=== PATIENT | male | born 1965 | race Caucasian/White ===

== ENCOUNTER 2017-09-27 08:40 | Observation (INO) | payer OTHER ==
[2017-09-27] MEDS ORDERED: FAMOTIDINE 20 MG TAB PO ONE (08:43)
[2017-09-27] MEDS ORDERED: ASPIRIN EC 325 MG TAB PO ONE (08:43)
[2017-09-27] MEDS ORDERED: DIAZEPAM 5 MG TAB PO ONE (08:43)
[2017-09-27] MEDS ORDERED: NS 1,000 ML IV ONE (08:43)
[2017-09-27] MEDS ORDERED: diphenhydrAMINE 25 MG CAP PO ONE ×2 (08:43→09:02)
--- NOTE | 2017-09-27 09:00 | CPEKG ---
Heart Rate: 92 RR Interval: 652 P-R Interval: 164 QRSD Interval: 76 QT Interval: 344 QTC Interval: 426 P [place]: 42 QRS [place]: 32 T Wave [place]: 78 EKG Severity - ABNORMAL ECG - EKG Impression: SINUS RHYTHM EKG Impression: INFERIOR INFARCT, CANNOT RULE OUT Electronically Signed By: Brett Bateman 28-Sep-2017 20:45:32
[2017-09-27] MEDS ORDERED: FAMOTIDINE 20 MG TAB ONE (09:02)
[2017-09-27] MEDS ORDERED: DIAZEPAM 5 MG TAB ONE (09:03)
--- NOTE | 2017-09-27 09:13 | PDPROPOC ---
Sedation Plan of Care Sedation Plan of Care: vital signs stable, mental status noted, patient educated of risks, benefits, alternatives, patient can tolerate sedation ASA Classification: ASA 2 Planned drugs: fentanyl, midazolam Mallampati Score: Class 3 Mallampati Reference Image: Patient passed 3-3-2 rule?: Yes
--- NOTE | 2017-09-27 09:13 | PDHPUP ---
History & Physical Update H&P update statement: This history and physical update is based on an assessment of the patient which was completed after admission or registration (within 24 hours), but prior to the surgery/procedure. H&P update: H&P reviewed & patient examined, no change in patient's condition since H&P completed
[2017-09-27 09:30] LABS: % IMMATURE GRANULYOCYTES 0.5 % (0.0-1.1); ABSOLUTE IMMATURE GRANULOCYTES 0.04 10^3/uL (0.00-0.10); ADD DIFF? NO; ADD MORPH? NO; ADD SCAN? NO; ATYPICAL LYMPHOCYTE FLAG 0 (0-99); FRAGMENT RBC FLAG 0 (0-99); HEMATOCRIT 47.9 % (40.0-51.0); HEMOGLOBIN 16.6 g/dL (13.7-17.5); LEFT SHIFT FLG 0 (0-99); LIPEMIA HEMOLYSIS FLAG 90 (0-99); MEAN CELL HEMOGLOBIN 30.2 pg (27.9-34.1); MEAN CELL HEMOGLOBIN CONCENTR. 34.7 g/dL (32.4-36.7); MEAN CELL VOLUME 87.2 fL (81.5-99.8); MEAN PLATELET VOLUME 9.9 fL (8.7-11.7); PLATELET CLUMPS FLAG 0 (0-99); PLATELET COUNT 204 10^3/uL (150-400); RED BLOOD CELL COUNT 5.49 10^6/uL (4.40-6.38)
[2017-09-27 09:35] LABS: INR 1.11 (0.83-1.16); PROTIME(PATIENT) 14.5 SEC (12.0-15.0)
[2017-09-27 09:53] LABS: ANION GAP 14 mEq/L (8-16); CALCIUM 9.5 mg/dL (8.5-10.4); CARBON DIOXIDE 22 mEq/l (22-31); CHLORIDE 104 mEq/L (97-110); CHOLESTEROL 119 mg/dL (140-220); CHOLESTEROL/HDL RATIO 3.22 RATIO (1.00-4.97); CREATININE 0.8 mg/dL (0.7-1.3); GLOMERULAR FILTRATION RATE > 60; GLUCOSE 177 mg/dL (70-100); HIGH DENSITY LIPOPROTEIN 37 mg/dL (40-65); LDL/HDL RATIO 1.81 RATIO (1.00-3.64); LOW DENSITY LIPOPROTEIN 67 mg/dL (80-100); MAGNESIUM 1.7 mg/dL (1.6-2.3); NON-HIGH DENSITY LIPOPROTEIN 82 mg/dL (90-129); POTASSIUM 4.1 mEq/L (3.5-5.2); SODIUM 140 mEq/L (134-144); TRIGLYCERIDE 76 mg/dL (40-150); VERY LOW DENSITY LIPOPROTEINS 15 mg/dL (8-25)
[2017-09-27] MEDS ORDERED: IOPAMIDOL (ISOVUE-370) 150 ML BTL IV ONE (10:07)
[2017-09-27] MEDS ORDERED: LIDOCAINE 1% 300 MG/30 ML SDV ONE (10:07)
[2017-09-27] MEDS ORDERED: MIDAZOLAM 2 MG/2 ML VIAL ONE ×2 (10:07→11:07)
[2017-09-27] MEDS ORDERED: fentaNYL 100 MCG/2 ML INJ ONE ×2 (10:07→11:07)
[2017-09-27] MEDS ORDERED: IOPAMIDOL (ISOVUE-300) 150 ML BTL ONE (10:08)
[2017-09-27] MEDS ORDERED: BIVALIRUDIN 250 MG/5 ML VIAL IV ONE (11:37)
[2017-09-27] MEDS ORDERED: NITROGLYCERIN 1,500 MCG/15 ML VIAL MISC ONE (11:59)
[2017-09-27] MEDS ORDERED: CLOPIDOGREL BISULFATE 75 MG TAB ONE ×2 (12:25→12:44)
[2017-09-27] MEDS ORDERED: ATROPINE SULFATE 1 MG/10 ML SYR IVP PRN (12:53)
[2017-09-27] MEDS ORDERED: CLOPIDOGREL BISULFATE 75 MG TAB PO ONE (12:53)
[2017-09-27] MEDS ORDERED: ONDANSETRON 4 MG/2 ML VIAL IVP PRN (12:53)
[2017-09-27] MEDS ORDERED: TEMAZEPAM 15 MG CAP PO PRN (12:53)
[2017-09-27] MEDS ORDERED: NITROGLYCERIN 0.4 MG BTL SL PRN (12:53)
[2017-09-27] MEDS ORDERED: LORazepam 2 MG/ML INJ IVP PRN (12:53)
[2017-09-27] MEDS ORDERED: LOSARTAN/HCTZ 50/12.5 1 TAB PO SCH (14:45)
--- NOTE | 2017-09-27 16:00 | CPEKG ---
Heart Rate: 73 RR Interval: 822 P-R Interval: 172 QRSD Interval: 74 QT Interval: 372 QTC Interval: 410 P [place]: 57 QRS [place]: 56 T Wave [place]: 104 EKG Severity - ABNORMAL ECG - EKG Impression: SINUS RHYTHM EKG Impression: NONSPECIFIC T ABNORMALITIES, LATERAL LEADS Electronically Signed By: Brett Bateman 28-Sep-2017 20:45:06
--- NOTE | 2017-09-27 19:25 | CPIP ---
[f rep st] INVASIVE CARDIAC PROCEDURE DATE OF PROCEDURE: 09/27/2017 PROCEDURES PERFORMED: 1. Coronary angiography. 2. Left ventricular end-diastolic pressure. 3. Abdominal aortography. 4. Right lower extremity angiography via ipsilateral approach with catheter placed in the right comm on iliac artery. INDICATION: 1. Class 3 angina, despite medical therapy. 2. Claudication. ACCESS: Patient was prepped and draped in sterile fashion. 1% lidocaine was used to anesthetize the right inguinal region. A 6-Haitian introducer sheath was placed selectively in the right common femo ral artery via modified Seldinger technique. CORONARY ANGIOGRAPHY: A 6-Haitian JL4 was advanced to the left main coronary artery and images obtain ed. The left main coronary artery bifurcated into an LAD and circumflex coronary arteries. The left main coronary artery appeared normal. The left anterior descending coronary artery had mild diffuse disease throughout. In the midvessel, previously placed stents could be seen. The previously place d stents are widely patent with no evidence of significant in-stent restenosis. The second diagonal artery is a small vessel. The second diagonal artery had an ostial 90% stenosis present. This was u nchanged since stent placement previously. The circumflex coronary artery is a large vessel. The ci rcumflex coronary artery is dominant. The circumflex coronary artery is diffusely diseased. In the mid vessel, a previously placed stent can be seen. The previously placed stent is widely patent with no evidence of significant in-stent restenosis. The second OM artery was also stented; the second O M artery gave rise to a large superior and large inferior limbs. Stents could be seen extending into the superior and inferior limbs. The stent in the inferior limb had pnns-da-[id number] in-stent reste nosis present. The stent in the superior limb was widely patent. Just distal to the stent, in the s uperior limb, a single discrete 80% stenosis can be seen. Right coronary angiography was not perform ed as the right coronary artery is nondominant and known to be occluded previously. LEFT VENTRICULAR END-DIASTOLIC PRESSURE: A 6-Haitian pigtail catheter was advanced in the left ventri fracisco and left ventricular end-diastolic pressure obtained. Left ventricular end-diastolic pressure wa s 15 mmHg. Left ventriculography was not performed in an effort to spare contrast, to allow full ang iography and intervention. PERCUTANEOUS CORONARY INTERVENTION OF THE OBTUSE MARGINAL-2 CORONARY ARTERY: A 6-Haitian EBU 3.5 cath eter was advanced to the left main coronary artery and images obtained. Angiography confirmed the pr esence of high-grade disease in the superior limb of the OM2 coronary artery. A Luge wire was placed in the distal vessel and position verified by angiography. A 2.5 x 12 Emerge balloon was used to pr e-dilate the lesion. Followup angiography demonstrated significant residual stenosis. A 2.25 x 16 S ynergy drug-eluting stent was then placed across the lesion and deployed. Followup angiography demon strated JAROCHO-3 flow, incomplete stent expansion. The stent was post dilated with a 2.5 x 12 Emerge b alloon. Followup angiography demonstrated JAROCHO-3 flow, no residual stenosis. ABDOMINAL AORTOGRAPHY: A 6-Haitian pigtail catheter was placed in the distal abdominal aorta and posi tion verified by angiography. Images were obtained via power injection through the [employer] system. T he distal abdominal aorta bifurcated into the left and right common iliac arteries. Stents can be se en in the left and right common iliac arteries, placed via kissing technique. The ostial segment of the right common iliac artery stent was about 25% stenosis. The left common iliac stent was free of any significant disease. The left common iliac artery bifurcated into the left internal iliac artery and the left external iliac artery. The left internal iliac artery was not well visualized. The le ft external iliac artery had a previously placed stent. The previously placed stent appeared to have severe in-stent restenosis present. RIGHT LOWER EXTREMITY ANGIOGRAPHY VIA IPSILATERAL APPROACH WITH CATHETER PLACED IN THE RIGHT COMMON I LIAC ARTERY: A 5-Haitian straight flush catheter was placed in the right common iliac artery and imag es were obtained via hand injection. A stent can be seen in the right common iliac artery. The osti al portion of the right common iliac artery stent had a 20% stenosis present. The remainder of the s tent had mild in-stent restenosis with no evidence of flow limitation. The right internal iliac rupa ry had an ostial 60% stenosis present. The right external iliac artery had a segmental 50% stenosis present. COMPLICATIONS: None. CONCLUSIONS: 1. Two-vessel coronary artery disease. 2. Status post successful percutaneous coronary intervention of the obtuse marginal artery using Syn ergy drug-eluting stent. 3. Severe in-stent restenosis of the left external iliac artery stent, consider staged percutaneous intervention. /[id number]/MODL
[2017-09-28 04:14] LABS: % IMMATURE GRANULYOCYTES 0.4 % (0.0-1.1); ABSOLUTE IMMATURE GRANULOCYTES 0.03 10^3/uL (0.00-0.10); ADD DIFF? NO; ADD MORPH? NO; ADD SCAN? NO; ATYPICAL LYMPHOCYTE FLAG 0 (0-99); FRAGMENT RBC FLAG 0 (0-99); HEMATOCRIT 44.7 % (40.0-51.0); HEMOGLOBIN 15.2 g/dL (13.7-17.5); LEFT SHIFT FLG 0 (0-99); LIPEMIA HEMOLYSIS FLAG 90 (0-99); MEAN CELL HEMOGLOBIN 29.8 pg (27.9-34.1); MEAN CELL VOLUME 87.6 fL (81.5-99.8); MEAN PLATELET VOLUME 9.8 fL (8.7-11.7); PLATELET CLUMPS FLAG 10 (0-99); PLATELET COUNT 182 10^3/uL (150-400); RED CELL DISTRIBUTION WIDTH 13.1 % (11.5-15.2)
[2017-09-28 04:33] LABS: ANION GAP 11 mEq/L (8-16); CALCIUM 8.9 mg/dL (8.5-10.4); CARBON DIOXIDE 26 mEq/l (22-31); CHLORIDE 103 mEq/L (97-110); CREATININE 0.9 mg/dL (0.7-1.3); GLOMERULAR FILTRATION RATE > 60; GLUCOSE 122 mg/dL (70-100); POTASSIUM 4.2 mEq/L (3.5-5.2); SODIUM 140 mEq/L (134-144)
[2017-09-28] MEDS ORDERED: ATORVASTATIN CALCIUM 40 MG TAB PO SCH (09:00)
[2017-09-28] MEDS ORDERED: ASPIRIN EC 325 MG TAB PO SCH (09:00)
[2017-09-28] MEDS ORDERED: NON-FORMULARY NEW DRUG (Atorvastatin Calcium [Lipitor 80 Mg] 80 MG) PO SCH (09:00)
[2017-09-28] MEDS ORDERED: NON-FORMULARY NEW DRUG (Glimepiride [Amaryl] 4 MG) PO SCH (09:00)
[2017-09-28] MEDS ORDERED: CLOPIDOGREL BISULFATE 75 MG TAB PO SCH (09:00)
[2017-09-28] MEDS ORDERED: GLIMEPIRIDE 2 MG TAB PO SCH (09:00)
[2017-09-28] MEDS ORDERED: LOSARTAN/HCTZ 50/12.5 1 TAB PO SCH (09:00)
--- NOTE | 2017-09-28 09:06 | CPEKG ---
Heart Rate: 80 RR Interval: 750 P-R Interval: 164 QRSD Interval: 74 QT Interval: 368 QTC Interval: 425 P [place]: 53 QRS [place]: 50 T Wave [place]: 94 EKG Severity - ABNORMAL ECG - EKG Impression: SINUS RHYTHM EKG Impression: VENTRICULAR PREMATURE COMPLEX EKG Impression: NONSPECIFIC T ABNORMALITIES, LATERAL LEADS Electronically Signed By: Brett Bateman 28-Sep-2017 20:45:00
--- NOTE | 2017-09-28 09:31 | ASMTCMCOM ---
CM Note CM Note Notes: 09/28/2017 Case Management Note Reviewed chart. No case management d/c needs identified d/t pt age, marital status, employment status and activity levels prior to admission. There are no PT or OT evals ordered at this time. Case Management d/c poc: Home independent with follow up as directed when medically stable. Case management available if needs change. Date Signed: 09/28/2017 09:31 AM Electronically Signed By:Gabbie Rubalcava RN
[2017-09-28 11:52] VITALS: BP 99/94; PULSE 87; RESP 17; TEMP 98.7; O2SAT 96
--- NOTE | 2017-09-28 16:50 | ASDISCHSUM ---
Discharge Information Plan Status:Home with No Needs Medically Cleared to Leave:09/27/2017 Discharge Date:09/28/2017 02:00 PM CM D/C Disposition:Home, Routine, Self-Care ADT D/C Disposition:Home, Routine, Self-Care Projected Discharge Date:09/28/2017 12:00 AM Transportation at D/C:Family Discharge Delay Reason: Follow-Up Date:09/28/2017 12:00 AM Discharge Slot: Final Diagnosis: Placement Information Patient Contact Information Contact Name:VERONICA Relationship:Daughter Address:[address] City:[facility] Phone: State/Zip Code:[place] [address] Email: Financial Information Financial Class:Braulio [facility] Primary Plan Desc:[facility] [place] [facility] Primary Plan Number:[id number] Secondary Plan Desc: Secondary Plan Number: Assessment Information [facility] CM Progress Note CM Note CM Note Notes: 09/28/2017 Case Management Note Reviewed chart. No case management d/c needs identified d/t pt age, marital status, employment status and activity levels prior to admission. There are no PT or OT evals ordered at this time. Case Management d/c poc: Home independent with follow up as directed when medically stable. Case management available if needs change. Date Signed: 09/28/2017 09:31 AM Electronically Signed By:Gabbie Rubalcava RN Intervention Information
--- NOTE | 2017-09-29 06:28 | GDS ---
[f rep st] DISCHARGE SUMMARY ADMISSION DIAGNOSES: 1. Coronary artery disease. 2. Peripheral vascular disease with claudication. 3. Hyperlipidemia. 4. Hypertension. 5. Tobacco abuse. DISCHARGE DIAGNOSES: 1. Coronary artery disease with previous stents. 2. Percutaneous coronary intervention of the obtuse marginal artery using Synergy drug-eluting stent . 3. Severe in-stent restenosis of the left external iliac artery stent. COURSE OF HOSPITALIZATION: This gentleman was seen in clinic by Dr. Cyrus Ruggiero, due to recent chest pain and shortness of breath post ear surgery in the fall of 2016. He had no cardiac complications d uring or after the ear surgery. Since the surgery he developed chest pain and claudication. He desc ribes the chest pain as pressure in the center of his chest that did not radiate. He denied having n ausea, vomiting, or diaphoresis. He additionally was experiencing symptoms of claudication, specific ally in bilateral buttocks with pain on exertion. This pain was brought on after walking short dista nces. It was decided to further evaluate with cardiac angiogram and peripheral vascular studies. He was taken to the laborer bit[facility] p[facility] where a new lesion was found on the obtuse marginal requiring a drug-eluti ng stent. Other vessels showed no stent restenosis. The right internal iliac artery had an ostial 6 0% stenosis present. The right external iliac artery had a segmental 50% stenosis present. Successf ul percutaneous intervention was done of the obtuse marginal using a Synergy drug-eluting stent. Sev ere in-stent restenoses of the left external iliac artery stent was noted with recommendation for con sideration of a staged percutaneous intervention. He had no complications and was taken to PCU for o vernight observation where he has done well. He has had no chest discomfort and no complaints of cla udication. Groin sites are intact with no bleeding, induration or pain. At this time he currently i s stable for discharge. MEDICATIONS: He will go home on metformin 500 mg twice daily to be held until 09/29/2017 evening dos e. Losartan hydrochlorothiazide 100/25 1 tablet daily. Vitamin D2 50,000 units on Wednesdays. Lipi tor 80 daily. Tylenol 325 mg to 650 mg every 4 hours as needed for pain, not to exceed 3 g daily. E nteric-coated aspirin 325 mg daily. Amaryl 4 mg daily. Plavix 75 mg daily. PHYSICAL EXAMINATION: VITAL SIGNS: On day of discharge, blood pressure 129/79, heart rate 88 and re gular, oxygen saturation 95%. EKG shows a normal sinus rhythm with no ischemic changes. HEART: Rat e regular, no murmurs, rubs, gallops. LUNGS: Clear to auscultation. No wheezes, rales, or rhonchi. GROIN: Right groin site is intact with no bleeding, induration or pain. No ecchymoses noted. EXT REMITIES: Pulses are present in femoral and bilateral lower extremities. No lower extremity edema n oted. DISCHARGE PLAN: He will follow up with Dr. Ruggiero for continued PVD procedure to be set up in the ne xt 1-2 weeks; this will be of the left leg. Should he have any concerns prior to this procedure, he will call the office. The peripheral vascular procedure schedule time will be called to him. Groin site precautions were reviewed with him verbally and written. He understands no heavy pushing, pulling, or lifting greater than 10 pounds for 1 week. No sitting in a tub of water. Avoid bearing down over the next week. At this time, he currently is stable for discharge. /[id number]/MODL
[2017-10-03] MEDS ORDERED: ERGOCALCIFEROL 50,000 I.UNIT CAP PO SCH (09:00)
== END 2017-09-28 14:00 | disposition home or self-care (01) ==
LOC: FCATH 08:40 → F2W 12:53
PROVIDERS: ADMIT Internal Medicine Cardiovascular Disease; ATTEND Internal Medicine Cardiovascular Disease
PROC: 4A023N7 Measurement of Cardiac Sampling and Pressure, Left Heart, Percutaneous Approach (ICD-10-PCS; principal; 2017-09-27)
PROC: B2111ZZ Fluoroscopy of Multiple Coronary Arteries using Low Osmolar Contrast (ICD-10-PCS; principal; 2017-09-27)
PROC: 027034Z Dilation of Coronary Artery, One Artery with Drug-eluting Intraluminal Device, Percutaneous Approach (ICD-10-PCS; principal; 2017-09-27)
PROC: B2151ZZ Fluoroscopy of Left Heart using Low Osmolar Contrast (ICD-10-PCS; principal; 2017-09-27)
DX: I25.119 Atherosclerotic heart disease of native coronary artery with unspecified angina pectoris (principal); T82.857A Stenosis of other cardiac prosthetic devices, implants and grafts, initial encounter; I73.9 Peripheral vascular disease, unspecified; E78.5 Hyperlipidemia, unspecified; I10 Essential (primary) hypertension; F17.210 Nicotine dependence, cigarettes, uncomplicated; E11.9 Type 2 diabetes mellitus without complications
CPT/HCPCS: 75710; 92928; 93005; 93458; C1725; C1769; C1887; G0378; C1874; C9600; J0583; J1644; J2250; J3010; Q9967

== ENCOUNTER 2017-10-05 06:31 | Observation (INO) | payer OTHER ==
[2017-10-05] MEDS ORDERED: FAMOTIDINE 20 MG TAB PO ONE (06:38)
[2017-10-05] MEDS ORDERED: NS 1,000 ML IV ONE (06:38)
[2017-10-05] MEDS ORDERED: diphenhydrAMINE 25 MG CAP PO ONE ×2 (06:38→07:14)
[2017-10-05] MEDS ORDERED: DIAZEPAM 5 MG TAB PO ONE (06:38)
[2017-10-05] MEDS ORDERED: ASPIRIN EC 325 MG TAB PO ONE ×2 (06:38→07:14)
--- NOTE | 2017-10-05 06:58 | CPEKG ---
Heart Rate: 83 RR Interval: 723 P-R Interval: 180 QRSD Interval: 78 QT Interval: 368 QTC Interval: 433 P [place]: 60 QRS [place]: 36 T Wave [place]: 74 EKG Severity - BORDERLINE ECG - EKG Impression: SINUS RHYTHM EKG Impression: NONSPECIFIC T WAVE ABNORMALITIES LATERAL LEADS Electronically Signed By: Payton Jarvis 05-Oct-2017 08:29:44
[2017-10-05] MEDS ORDERED: DIAZEPAM 5 MG TAB ONE (07:14)
[2017-10-05] MEDS ORDERED: FAMOTIDINE 20 MG TAB ONE (07:14)
[2017-10-05 07:19] LABS: % IMMATURE GRANULYOCYTES 0.5 % (0.0-1.1); ABSOLUTE IMMATURE GRANULOCYTES 0.04 10^3/uL (0.00-0.10); ADD DIFF? NO; ADD MORPH? NO; ADD SCAN? NO; ATYPICAL LYMPHOCYTE FLAG 10 (0-99); FRAGMENT RBC FLAG 0 (0-99); HEMATOCRIT 45.2 % (40.0-51.0); HEMOGLOBIN 16.2 g/dL (13.7-17.5); LEFT SHIFT FLG 0 (0-99); LIPEMIA HEMOLYSIS FLAG 90 (0-99); MEAN CELL HEMOGLOBIN 31.2 pg (27.9-34.1); MEAN CELL HEMOGLOBIN CONCENTR. 35.8 g/dL (32.4-36.7); MEAN CELL VOLUME 86.9 fL (81.5-99.8); MEAN PLATELET VOLUME 10.1 fL (8.7-11.7); PLATELET CLUMPS FLAG 0 (0-99); PLATELET COUNT 217 10^3/uL (150-400); RED CELL DISTRIBUTION WIDTH 12.9 % (11.5-15.2)
[2017-10-05 07:28] LABS: INR 1.17 (0.83-1.16); PROTIME(PATIENT) 15.1 SEC (12.0-15.0)
[2017-10-05 07:32] LABS: ANION GAP 14 mEq/L (8-16); CALCIUM 9.4 mg/dL (8.5-10.4); CARBON DIOXIDE 21 mEq/l (22-31); CHLORIDE 103 mEq/L (97-110); CHOLESTEROL 110 mg/dL (140-220); CHOLESTEROL/HDL RATIO 2.97 RATIO (1.00-4.97); CREATININE 0.8 mg/dL (0.7-1.3); GLOMERULAR FILTRATION RATE > 60; GLUCOSE 185 mg/dL (70-100); HIGH DENSITY LIPOPROTEIN 37 mg/dL (40-65); LDL/HDL RATIO 1.57 RATIO (1.00-3.64); LOW DENSITY LIPOPROTEIN 58 mg/dL (80-100); MAGNESIUM 1.7 mg/dL (1.6-2.3); NON-HIGH DENSITY LIPOPROTEIN 73 mg/dL (90-129); SODIUM 138 mEq/L (134-144); TRIGLYCERIDE 77 mg/dL (40-150); VERY LOW DENSITY LIPOPROTEINS 15 mg/dL (8-25)
[2017-10-05] MEDS ORDERED: LIDOCAINE 1% 300 MG/30 ML SDV ONE (08:07)
[2017-10-05] MEDS ORDERED: fentaNYL 100 MCG/2 ML INJ ONE (08:08)
[2017-10-05] MEDS ORDERED: MIDAZOLAM 2 MG/2 ML VIAL ONE (08:08)
[2017-10-05] MEDS ORDERED: IOPAMIDOL (ISOVUE-300) 150 ML BTL ONE ×2 (08:09→09:17)
[2017-10-05] MEDS ORDERED: HEPARIN 10,000 UNIT/10 ML MDV ONE (08:40)
--- NOTE | 2017-10-05 08:46 | PDPROPOC ---
Sedation Plan of Care Sedation Plan of Care: vital signs stable, mental status noted, patient educated of risks, benefits, alternatives, patient can tolerate sedation ASA Classification: ASA 2 Planned drugs: fentanyl, midazolam Mallampati Score: Class 2 Mallampati Reference Image: Patient passed 3-3-2 rule?: Yes
[2017-10-05] MEDS ORDERED: ATROPINE SULFATE 1 MG/10 ML SYR IVP PRN (09:55)
[2017-10-05] MEDS ORDERED: ONDANSETRON 4 MG/2 ML VIAL IVP PRN (09:55)
[2017-10-05] MEDS ORDERED: LIDOCAINE 2% JELLY 20 ML (UROJECT) ONE (11:27)
--- NOTE | 2017-10-05 16:30 | ASMTCMCOM ---
CM Note CM Note Notes: Chart reviewed. Patient here for elective cardiac cath. Do not anticipate patient will have needs. Plan dc to home independent. CM avaialbe should needs arise. Date Signed: 10/05/2017 04:30 PM Electronically Signed By:Anabell Larose RN
[2017-10-05] MEDS ORDERED: ACETAMINOPHEN 325 MG TAB PO PRN (17:09)
[2017-10-05] MEDS ORDERED: HYDROCODONE/APAP 5/325 TAB PO PRN (17:10)
[2017-10-05] MEDS: OXYCODONE/APAP 5/325 TAB PO PRN ×2 (18:44→22:27)
--- NOTE | 2017-10-05 19:02 | CPIP ---
[f rep st] INVASIVE CARDIAC PROCEDURE DATE OF PROCEDURE: 10/05/2017 NAME OF PROCEDURE: 1. Left lower extremity angiography with catheter placed in the left common iliac artery. 2. Left external iliac artery drug-coated balloon angioplasty. INDICATION: Claudication. ACCESS: Patient was prepped and draped in usual sterile fashion. 1% lidocaine was used to anestheti ze the left inguinal region. A 6-Nepali introducer sheath was placed selectively into the left commo n femoral artery via modified Seldinger technique. Left lower extremity angiography with catheter pl aced in the left common iliac artery. A straight flush catheter was placed in the left common iliac artery and position verified by angiography. Images were obtained via hand injection through the cat heter. The left common iliac artery bifurcated into the left external iliac artery and left internal iliac artery. The left common iliac artery was previously stented. There was mild in-stent resteno sis of the previously placed stent with no evidence of flow limitation. The left internal iliac rupa ry had approximately 99% ostial stenosis. The left external iliac artery was previously stented. Th e previously placed stent was patent with approximately 75% ISR present. Just distal to the previous ly placed stent, a healed [id number]-nplg-hnlpaoxi dissection can be seen. This was present prior to 2014. A pullback gradient across the dissection flap was 2 mmHg, indicating no flow limitation. Drug coat ed balloon angioplasty of the left external iliac artery. An 0.035 wire was placed in the distal abd ominal aorta and position verified by angiography. A 6.0 x 40 drug coated balloon was placed across the lesion and deployed for 2 minutes. Followup angiography demonstrated 15% residual stenosis with no flow limitation. COMPLICATIONS: None. CONCLUSIONS: 1. 75% left external iliac artery stenosis representing in-stent restenosis. 2. Status post drug-coated balloon angioplasty of the left external iliac artery with good results. /[id number]/MODL
[2017-10-05] MEDS: CARVEDILOL 6.25 MG TAB PO SCH (22:14)
[2017-10-06 08:31] VITALS: BP 117/70; PULSE 76; RESP 18; TEMP 97.8; O2SAT 96
[2017-10-06] MEDS: CARVEDILOL 6.25 MG TAB PO SCH (08:35)
[2017-10-06] MEDS ORDERED: CLOPIDOGREL BISULFATE 75 MG TAB PO SCH (09:00)
[2017-10-06] MEDS ORDERED: glyBURIDE 5 MG TAB PO SCH (09:00)
[2017-10-06] MEDS ORDERED: ASPIRIN EC 325 MG TAB PO SCH (09:00)
[2017-10-06] MEDS ORDERED: LOSARTAN/HCTZ 50/12.5 1 TAB PO SCH (09:00)
[2017-10-06] MEDS ORDERED: MULTIVITAMINS 1 EACH TAB PO SCH (09:00)
[2017-10-06] MEDS ORDERED: ATORVASTATIN CALCIUM 20 MG TAB PO SCH (09:00)
[2017-10-06] MEDS ORDERED: GLIMEPIRIDE 2 MG TAB PO SCH (09:00)
--- NOTE | 2017-10-06 13:32 | GDS ---
[f rep st] DISCHARGE SUMMARY ADMIT DIAGNOSES: 1. Known peripheral vascular disease. 2. Coronary artery disease, status post recent percutaneous coronary intervention 09/27/2017. DISCHARGE DIAGNOSIS: Status post drug-eluting stent to the left common iliac with no complications. COURSE OF HOSPITALIZATION: This gentleman was hospitalized 1 week ago for coronary artery disease, h aving a PCI of the obtuse marginal. He additionally had blockage in the right common iliac intervene d with drug-eluting balloon. Due to the dye load it was determined that he would need to come back f or evaluation of the left common iliac. Dr. Cyrus Ruggiero took him to the cardiac analyst microbiology lab on 10/05/2017, finding 75% blockage of the left external iliac artery representing in-stent restenosis, status post drug-coated balloon angioplasty of the left external iliac artery with good results. He has been up ambulating with no problems. Right groin site is intact with no bleeding, induration, he matoma or pain. ALLERGIES: He has no known allergies. MEDICATIONS: He will go home on metformin 500 mg twice daily to be restarted on 10/07/2017, in the evening. Losartan hydrochlorothiazide 100/25 daily. Vitamin D2, 50,000 units on Wednesdays. Aspirin enteric-coated 325 mg daily. Cialis 20 mg as needed. Multivitamin 1 tablet daily. Coreg h as been reduced to 3.125 twice daily. Lipitor 20 mg daily. Plavix 75 mg daily. Amaryl 4 mg daily. Tylenol 325 mg as needed for pain, not to exceed 3000 mg daily. PHYSICAL EXAMINATION: VITAL SIGNS: On day of discharge blood pressure 117/70, heart rate 76. EKG s hows normal sinus rhythm. HEART: Rate regular. No murmurs, rubs, or gallops. LUNGS: Sounds are c lear to auscultation. No wheezes, rales, or rhonchi. : Right groin site is intact with no bleedi ng, induration or pain. Right peripheral pulses are 2+. DISCHARGE PLAN: He will follow up with Dr. Ruggiero in 10 days. Left groin precautions including no lifting, pushing, pulling greater than 10 pounds for 1 week. Oka y to shower. No tub bath or hot tub for 1 week. Explained avoid bearing down. Keep bowels soft to protect groin site. Decrease Coreg to 3.125 mg twice daily. Follow up with Dr. Ruggiero on 10/12/2017. Hold Glucophage until Sunday evening, 10/07/2017. Call the office if you have any questions or concerns. At this time, he is currently stable. /[id number]/MODL
--- NOTE | 2017-10-06 14:47 | ASDISCHSUM ---
Discharge Information Plan Status:Home with No Needs Medically Cleared to Leave: Discharge Date:10/06/2017 10:48 AM D/C Disposition:Home Health Service [facility] D/C Disposition:Home, Routine, Self-Care Projected Discharge Date:10/06/2017 10:48 AM Transportation at D/C:Family Discharge Delay Reason: Follow-Up Date:10/06/2017 10:48 AM Discharge Slot: Final Diagnosis: Placement Information Patient Contact Information Contact Name:VERONICA Relationship:Daughter Address:[address] City:[facility] Phone: [facility]/Zip Code:[place] [address] Email: Financial Information Financial Class:Braulio [facility] Primary Plan Desc:BRAULIO GANDARA [facility] Primary Plan Number:[id number] Secondary Plan Desc: Secondary Plan Number: Assessment Information [facility] CM Progress Note CM Note CM Note Notes: Chart reviewed. Patient here for elective cardiac cath. Do not anticipate patient will have needs. Plan dc to home independent. CM katya should needs arise. Date Signed: 10/05/2017 04:30 PM Electronically Signed By:Anabell Larose RN Intervention Information
[2017-10-06] MEDS ORDERED: CARVEDILOL 3.125 MG TAB PO SCH (18:00)
[2017-10-10] MEDS ORDERED: ERGOCALCIFEROL 50,000 I.UNIT CAP PO SCH (09:57)
== END 2017-10-06 10:48 | disposition home or self-care (01) ==
LOC: FCATH 06:31 → F2W 09:56
PROVIDERS: ADMIT Internal Medicine Cardiovascular Disease; ATTEND Internal Medicine Cardiovascular Disease
PROC: 047 Lower Arteries, Dilation (ICD-10-PCS; principal; 2017-10-05)
DX: I77.1 Stricture of artery (principal); I73.9 Peripheral vascular disease, unspecified; I25.10 Atherosclerotic heart disease of native coronary artery without angina pectoris; I10 Essential (primary) hypertension; Z72.0 Tobacco use; E78.5 Hyperlipidemia, unspecified; E11.9 Type 2 diabetes mellitus without complications
CPT/HCPCS: 37220; 93005; C1769; G0378; C2623; J1644; J2250; J3010; Q9967

== ENCOUNTER 2018-09-27 09:00 | Day surgery (SDC) | payer OTHER ==
[2018-09-27] MEDS ORDERED: NS 1,000 ML IV ONE (09:06)
[2018-09-27] MEDS ORDERED: DIAZEPAM 5 MG TAB PO ONE (09:06)
[2018-09-27] MEDS ORDERED: diphenhydrAMINE 25 MG CAP PO ONE (09:06)
[2018-09-27] MEDS ORDERED: ASPIRIN EC 325 MG TAB PO ONE (09:06)
[2018-09-27] MEDS ORDERED: FAMOTIDINE 20 MG TAB PO ONE (09:06)
[2018-09-27] MEDS ORDERED: MIDAZOLAM 2 MG/2 ML VIAL ONE ×2 (10:09→12:07)
[2018-09-27] MEDS ORDERED: LIDOCAINE 1% 300 MG/30 ML SDV ONE (10:09)
[2018-09-27] MEDS ORDERED: fentaNYL 100 MCG/2 ML INJ ONE (10:09)
[2018-09-27] MEDS ORDERED: IOPAMIDOL (ISOVUE-370) 150 ML BTL IV ONE (10:10)
[2018-09-27] MEDS ORDERED: IOPAMIDOL (ISOVUE-300) 100 ML BTL ONE (10:10)
--- NOTE | 2018-09-27 10:28 | CPEKG ---
Test Reason : OPEN Blood Pressure : / mmHG Vent. Rate : 073 BPM Atrial Rate : 073 BPM P-R Int : 161 ms QRS Dur : 077 ms QT Int : 380 ms P-R-T Axes : 059 044 087 degrees QTc Int : 419 ms Sinus rhythm Confirmed by Trey England ([id number]) on 09/27/2018 10:28:20 AM Referred By: Confirmed By:Trey England
[2018-09-27 10:49] LABS: PLATELET COUNT 260 10^3/uL (150-400)
[2018-09-27 10:59] LABS: INR 1.01 (0.83-1.16); PROTIME(PATIENT) 13.5 SEC (12.0-15.0)
[2018-09-27] MEDS ORDERED: BIVALIRUDIN 250 MG/5 ML VIAL IV ONE (11:44)
[2018-09-27] MEDS ORDERED: ADENOSINE 90 MG/30 ML VIAL IV ONE (11:44)
--- NOTE | 2018-09-27 15:26 | PDGENHP ---
History and Physical - Chief Complaint surgical eval of CAD - History of Present Illness This is a pleasant 53M with known CAD s/p multiple PCI, PVD s/p b/l CEA & iliac stents, DM, and dyslipidemia who presented today for elective LHC by Dr. Ruggiero. He reports symptoms of recurrent chest pain and pressure. Furthermore, he has daily claudication in his legs and buttocks. No chest or vein surgery. Occ LE edema. Reports occ SOB and CHILDS. Works in construction with heavy machinery. Mother and father with cardiac problems including CHF and heart disease. Tobacco 1 ppd x 30 years. ECHO from 2016 demonstrates EF 50 without valvular pathology. History Information - Allergies/Home Medication List Allergies/Adverse Reactions: No Known Allergies Allergy (Verified 09/05/16 17:01) Home Medications: Ergocalciferol [Vitamin D2 (*)] 50,000 unit PO WE 02/26/15 [Last Taken 09/25/18 08:00] Losartan/Hydrochlorothiazide [Losartan-Hctz 100-25 mg Tab] 1 tab PO DAILY [Last Taken 09/25/18 08:00] metFORMIN HCL [Glucophage 500 mg (*)] 500 mg PO BID 02/26/15 [Last Taken 08:00] Atorvastatin Calcium [Lipitor 20 mg (*)] 20 mg PO DAILY 10/02/17 [Last Taken 05/08 07:00] Multivitamins [Multivitamin (*)] 1 each PO DAILY 10/02/17 [Last Taken 09/26/18 08:00] Aspirin [Aspirin 81mg (*)] 81 mg PO DAILY 09/19/18 [Last Taken 09/27/18 07:00] Carvedilol [Coreg (*)] 6.25 mg PO BID 09/19/18 [Last Taken 09/27/18 07:00] I have personally reviewed and updated: family history, medical history, social history, surgical history - Past Medical History coronary artery disease, hypertension Additional medical history: DM, denies afib hx - Surgical History Reports: vascular surgery - Family History Positive for: CAD, stroke (1 ppd x 30 years) - Social History Smoking Status: Current every day smoker Review of Systems Review of Systems: ROS: 10pt was reviewed & negative except for what was stated in HPI & below Physical Exam Physical Exam: Constitutional Appearance : well-nourished, well developed, alert, in no acute distress Eyes Conjunctivae : conjunctivae normal Sclerae : sclerae white Ears External Ears : appearance within normal limits, no lesions present Neck Inspection/Palpation : normal appearance, no masses or tenderness, trachea midline, b/l CEA Respiratory Respiratory Effort : breathing unlabored Auscultation of Lungs : Normal breath sounds Cardiovascular Auscultation of Heart : regular rate and rhythm, no murmurs, gallops or rubs Palpation of Heart : normal apical impulse, no cardiac thrill present Peripheral Vascular System Extremities : no cyanosis, clubbing or edema Right femoral artery cath site c/d/i Skin and Subcutaneous Tissue General Inspection : no rashes present, no lesions present, skin turgor normal General Palpation : No abnormalities, masses or tenderness on palpation. Extremities Right Lower Extremity : no rashes present, no lesions present, no areas of discoloration Left Lower Extremity : no rashes present, no lesions present, no areas of discoloration Neurologic Mental Status Examination : Orientation : grossly oriented to person, place and time Speech/Language : communication ability within normal limits, voice quality normal, articulation of speech normal, no evidence of aphasia Psychiatric Mood and Affect : mood normal, affect appropriate Lab Data & Imaging Review 09/27/18 10:35 09/27/18 09:20 WBC 4.92 10^3/uL (3.80-9.50) 09/27/18 10:35 RBC 5.13 10^6/uL (4.40-6.38) 09/27/18 10:35 Hgb 14.9 g/dL (13.7-17.5) 09/27/18 10:35 Hct 44.8 % (40.0-51.0) 09/27/18 10:35 MCV 87.3 fL (81.5-99.8) 09/27/18 10:35 MCH 29.0 pg (27.9-34.1) 09/27/18 10:35 MCHC 33.3 g/dL (32.4-36.7) 09/27/18 10:35 RDW 13.4 % (11.5-15.2) 09/27/18 10:35 Plt Count 260 10^3/uL (150-400) 09/27/18 10:35 MPV 9.5 fL (8.7-11.7) 09/27/18 10:35 Neut % (Auto) 61.5 % (39.3-74.2) 09/27/18 10:35 Lymph % (Auto) 21.5 % (15.0-45.0) 09/27/18 10:35 Schley % (Auto) 7.3 % (4.5-13.0) 09/27/18 10:35 Eos % (Auto) 8.5 % (0.6-7.6) H 09/27/18 10:35 Baso % (Auto) 1.0 % (0.3-1.7) 09/27/18 10:35 Nucleat RBC Rel Count 0.0 % (0.0-0.2) 09/27/18 10:35 Absolute Neuts (auto) 3.02 10^3/uL (1.70-6.50) 09/27/18 10:35 Absolute Lymphs (auto) 1.06 10^3/uL (1.00-3.00) 09/27/18 10:35 Absolute Monos (auto) 0.36 10^3/uL (0.30-0.80) 09/27/18 10:35 Absolute Eos (auto) 0.42 10^3/uL (0.03-0.40) H 09/27/18 10:35 Absolute Basos (auto) 0.05 10^3/uL (0.02-0.10) 09/27/18 10:35 Absolute Nucleated RBC 0.00 10^3/uL (0-0.01) 09/27/18 10:35 Immature Gran % 0.2 % (0.0-1.1) 09/27/18 10:35 Immature Gran # 0.01 10^3/uL (0.00-0.10) 09/27/18 10:35 PT 13.5 SEC (12.0-15.0) 09/27/18 10:35 INR 1.01 (0.83-1.16) 09/27/18 10:35 APTT 26.9 SEC (23.0-38.0) 09/27/18 10:35 Sodium 135 mEq/L (135-145) 09/27/18 09:20 Potassium 4.5 mEq/L (3.5-5.2) 09/27/18 09:20 Chloride 103 mEq/L (97-110) 09/27/18 09:20 Carbon Dioxide 23 mEq/l (22-31) 09/27/18 09:20 Anion Gap 9 mEq/L (6-14) 09/27/18 09:20 BUN 12 mg/dL (7-23) 09/27/18 09:20 Creatinine 0.7 mg/dL (0.7-1.3) 09/27/18 09:20 Estimated GFR > 60 09/27/18 09:20 Glucose 254 mg/dL (70-100) H 09/27/18 09:20 Calcium 8.6 mg/dL (8.5-10.4) 09/27/18 09:20 Magnesium 2.0 mg/dL (1.6-2.3) 09/27/18 09:20 Triglycerides 113 mg/dL (40-150) 09/27/18 09:20 Cholesterol 182 mg/dL (140-220) 09/27/18 09:20 Cholesterol Risk Factr 1.0 (0.2-1.0) 09/27/18 09:20 LDL Cholesterol, Calc 120 mg/dL (80-100) H 09/27/18 09:20 LDL Risk Factor 1.0 (0.2-1.0) 09/27/18 09:20 VLDL Cholesterol 23 mg/dL (8-25) 09/27/18 09:20 Non-HDL Cholesterol 143 mg/dL (90-129) H 09/27/18 09:20 HDL Cholesterol 39 mg/dL (40-65) L 09/27/18 09:20 LDL/HDL Ratio 3.09 RATIO (1.00-3.64) 09/27/18 09:20 Cholesterol/HDL Ratio 4.67 RATIO (1.00-4.97) 09/27/18 09:20 Imaging Review: C/LE angiogram - final reporting pending EKG SR 09/27/18 ECHO 08/08 EF 50, trace MR, trace TR, LV base akinetic Assessment & Plan Assessment: Severe, multivessel CAD s/p PCI LAD, Cx, RCA Recurrent angina Severe peripheral vascular disease with claudication to buttocks s/p multiple peripheral vascular procedures Carotid artery disease s/p bilateral CEA Dyslipidemia HTN Tobacco use disorder DM Plan: Plan to meet Dr. Hernandez as an outpatient
--- NOTE | 2018-09-28 01:25 | CPIP ---
DATE OF PROCEDURE: 09/27/2018 PROCEDURES: 1. Coronary angiography. 2. Left ventricular end-diastolic pressure. 3. Fractional flow reserve of left anterior descending coronary artery. 4. Abdominal aortography. INDICATION: 1. Known coronary artery disease. 2. Class III angina. 3. Known peripheral vascular disease. 4. Class III claudication. ACCESS: Patient is prepped and draped in sterile fashion. 1% lidocaine was used to anesthetize the left inguinal region. A 6-[place] introducer sheath was placed selectively into the left common femor al artery via modified Seldinger technique. CORONARY ANGIOGRAPHY: A 6-[place] JL4 was advanced to the left main coronary artery and image was obt ained. The left main coronary artery bifurcated into LAD and circumflex coronary arteries. The left main coronary artery appeared normal. The left anterior descending coronary artery was previously s tented in the proximal and mid segments. In the mid segment, there was moderate ISR between 50% and 70% in severity. The 1st diagonal artery was a dawol-ki-chrkhqyd sized vessel. The 1st diagonal art charo had an ostial 95% stenosis present. The circumflex coronary artery was a large vessel and was do minant. The circumflex coronary artery had a proximal long segmental 50% stenosis present. In the m id vessel, previously placed stents can be seen. There was mild ISR of the previously-placed stents. The 1st OM artery is a ucyrkgzd-kd-hjqax sized vessel. The 1st OM artery is stented in the proxima l and mid segment. In the mid segment, there is a discrete 99% ISR noted. The 2nd OM artery is a mo bnbfmu-hi-ljhlk sized vessel. The 2nd OM artery is also stented in the proximal segment. There is m oderate ISR of 50% to 60% in severity. 6-[place] no torque right catheter was advanced to the right c oronary artery and images obtained. The right coronary artery was previously stented in the proximal and mid vessel. There was 100% ISR of the previously-placed stents. LEFT VENTRICULAR END-DIASTOLIC PRESSURE: A 6-[place] pigtail catheter was placed in the left ventricl e and pressure obtained. The left ventricular end-diastolic pressure was 23 mmHg. There was no sign ificant gradient on pullback. FFR OF THE LEFT ANTERIOR DESCENDING CORONARY ARTERY: A 6-[place] JL4 was advanced to the left main co ronary artery and image obtained. Angiography confirmed the presence of an intermediate grade stenos is involving the left anterior descending coronary artery. An FFR wire was placed in the distal vess el and position verified by angiography. IV adenosine infusion was infused and FFR obtained. The FF R was 0.69. Upon pullback, there was evidence of drift of 0.1. FFR was reobtained. The 2nd FFR was 0.78. Upon pullback, there was no evidence of drift indicating flow limitation. ABDOMINAL AORTOGRAPHY: A 6-[place] pigtail catheter was placed in the abdominal aorta and position ve rified by angiography. Images were obtained via power injection of the [employer] system. The distal ab dominal aorta bifurcated into the left and right common iliac arteries. Previously-placed stents can be seen in the left and right common iliac arteries via kissing stent technique. There is a 50% agatha nosis in the right common iliac artery at the ostium. There is no significant gradient on pullback. There is an eccentric high-grade stenosis of the left common iliac. The severity is difficult to ev aluate given its eccentricity. In the left external iliac artery, a previously-placed stent can be s een. There is 50% in-stent restenosis of the previously-placed stent. COMPLICATIONS: None. CONCLUSION: 1. Three-vessel coronary artery disease. 2. High-grade left common iliac artery stenosis. 3. 50% left external iliac artery stenosis. PLAN: Surgical evaluation. /[id number]/MODL
== END 2018-09-27 18:32 | disposition home or self-care (01) ==
LOC: FCATH 09:00
PROVIDERS: ATTEND Internal Medicine Cardiovascular Disease
DX: R07.9 Chest pain, unspecified (principal); I25.10 Atherosclerotic heart disease of native coronary artery without angina pectoris; I77.1 Stricture of artery; T82.856A Stenosis of peripheral vascular stent, initial encounter; I73.9 Peripheral vascular disease, unspecified; E78.5 Hyperlipidemia, unspecified; I10 Essential (primary) hypertension; F17.200 Nicotine dependence, unspecified, uncomplicated; E11.9 Type 2 diabetes mellitus without complications; N52.9 Male erectile dysfunction, unspecified; Z79.82 Long term (current) use of aspirin; Z82.49 Family history of ischemic heart disease and other diseases of the circulatory system; Z95.828 Presence of other vascular implants and grafts; Z95.5 Presence of coronary angioplasty implant and graft
CPT/HCPCS: 75630; 93005; 93458; 93571; C1769; C1887; J0153; J0583; J1644; J2250; J3010; Q9967

== ENCOUNTER → 2018-10-31 | Outpatient (CLI) | payer OTHER | LOC: FIMAGING 11:02 ==

== ENCOUNTER 2018-11-01 05:31 | Inpatient (IN) | payer OTHER ==
--- NOTE | 2018-10-31 21:37 | PDANEPAE ---
ANE History of Present Illness cad, angina ANE Past Medical History - Cardiovascular History Hx Hypertension: Yes Hx Arrhythmias: No Hx Chest Pain: Yes Hx Coronary Artery / Peripheral Vascular Disease: Yes Hx CHF / Valvular Disease: No Hx Palpitations: No Cardiovascular History Comment: CARDIAC STENTS - Pulmonary History Hx COPD: No Hx Asthma/Reactive Airway Disease: No Hx Recent Upper Respiratory Infection: No Hx Oxygen in Use at Home: No Hx Sleep Apnea: No Sleep Apnea Screening Result - Last Documented: Positive - Neurologic History Hx Cerebrovascular Accident: No Hx Seizures: No - Endocrine History Hx Diabetes: Yes Hypothyroid: No Hyperthyroid: No Obesity: mild Endocrine History Comment: METFORMIN - Renal History Hx Renal Disorders: No - Liver History Hx Hepatic Disorders: No - Neurological & Psychiatric Hx Hx Neurological and Psychiatric Disorders: No - Cancer History Hx Cancer: No - GI History GERD: no Hx Gastrointestinal Disorders: No - Other Health History Other Health History: NONE - Chronic Pain History Chronic Pain: No - Surgical History Prior Surgeries: DYLLAN CEA - 09/06. CARDIAC CATH 09/27/18. LEFT CAROTID . CARDIAC STENTS 02/2015 ANE Review of Systems Review of systems is: negative Review of Systems: - Exercise capacity METS (RN): 4 METS ANE Patient History - Allergies Allergies/Adverse Reactions: No Known Allergies Allergy (Verified 09/05/16 17:01) - Home Medications Home medications: home medication list seen and reviewed Home Medications: Ergocalciferol [Vitamin D2 (*)] 50,000 unit PO WE 02/26/15 [Last Taken 09/25/18 08:00] Losartan/Hydrochlorothiazide [Losartan-Hctz 100-25 mg Tab] 1 tab PO DAILY [Last Taken 09/25/18 08:00] metFORMIN HCL [Glucophage 500 mg (*)] 500 mg PO BID 02/26/15 [Last Taken 08:00] Atorvastatin Calcium [Lipitor 20 mg (*)] 20 mg PO DAILY 10/02/17 [Last Taken 05/08 07:00] Multivitamins [Multivitamin (*)] 1 each PO DAILY 10/02/17 [Last Taken 09/26/18 08:00] Aspirin [Aspirin 81mg (*)] 81 mg PO DAILY 09/19/18 [Last Taken 09/27/18 07:00] Carvedilol [Coreg (*)] 6.25 mg PO BID 09/19/18 [Last Taken 09/27/18 07:00] - NPO status NPO Status: no food or drink >8 hours - Smoking Hx Smoking Status: Former smoker - Alcohol Use Alcohol Use: Rarely - Family Anes Hx Family Anes Hx: none Family Hx Anesthesia Complications: NONE ANE Labs/Vital Signs - Vital Signs Height: 160.02 cm Weight: 86.183 kg ANE Physical Exam - Airway Neck exam: FROM, increased neck circumference Mallampati Score: Class 3 Mouth exam: normal dental/mouth exam - Pulmonary Pulmonary: no respiratory distress, clear to auscultation - Cardiovascular Cardiovascular: regular rate and rhythym, no murmur, rub, or gallop - ASA Status ASA Status: V ANE Anesthesia Plan Anesthesia Plan: general endotracheal anesthesia Lines/Monitors: arterial line, central line, GIACOMO
[2018-11-01] MEDS ORDERED: MUPIROCIN 2% 22 GM OINT NS ONE (05:46)
[2018-11-01] MEDS ORDERED: ceFAZolin 2 GM/DEXTROSE 100 ML IV ONE (05:46)
[2018-11-01] MEDS ORDERED: CITRATE DEXTROSE SOLN 500 ML BAG MISC ONE (05:46)
[2018-11-01] MEDS ORDERED: LIDOCAINE 1% 2 ML INJ ID PRN (05:46)
[2018-11-01] MEDS ORDERED: AMINOCAPROIC ACID 5 GM/20 ML VIAL IV ONE (05:46)
[2018-11-01] MEDS ORDERED: niCARdipine/NACL 200 ML IV ONE (05:46)
[2018-11-01] MEDS ORDERED: LR 1,000 ML IV ONE (05:48)
[2018-11-01] MEDS ORDERED: PAPAVERINE HCL 60 MG in NS 100 ML IV ONE (06:00)
[2018-11-01] MEDS ORDERED: VERAPAMIL 5 MG, NITROGLYCERIN 2.5 MG, HEPARIN 500 UNIT, SODIUM BICARBONATE 0.2 MEQ in L... MISC ONE (06:00)
[2018-11-01] MEDS ORDERED: PHENYLEPHRINE HCL 50 MG in NS 250 ML IV ONE (06:00)
[2018-11-01] MEDS ORDERED: NOREPINEPHRINE BITARTRATE 16 MG in NS 250 ML IV ONE (06:00)
[2018-11-01] MEDS ORDERED: MANNITOL 25% 12.5 GM/50 ML VIAL IVP ONE (06:00)
[2018-11-01] MEDS ORDERED: INSULIN REGULAR HUMAN 100 UNIT in NS 100 ML IV ONE (06:00)
[2018-11-01] MEDS ORDERED: CARDIOPLEGIC SOLUTION 1,052.8 ML PF ONE (06:00)
[2018-11-01] MEDS ORDERED: CALCIUM CHLORIDE 1 GM/10 ML INJ ONE ×3 (06:19→06:21)
[2018-11-01] MEDS ORDERED: PROTAMINE SULFATE 50 MG/5 ML VIAL IVP ONE (06:19)
[2018-11-01] MEDS ORDERED: MILRINONE/DEXTROSE/100 ML BAG IV ONE (06:19)
[2018-11-01] MEDS ORDERED: AMINOCAPROIC ACID 5 GM/20 ML VIAL ONE ×2 (06:19→06:21)
[2018-11-01] MEDS ORDERED: DOPamine/DEXTROSE 400 MG/250 ML BAG IV ONE (06:20)
[2018-11-01] MEDS ORDERED: niCARdipine/NACL/200 ML BAG IV ONE (06:20)
[2018-11-01] MEDS ORDERED: HEPARIN 10,000 UNIT/10 ML MDV (1,000 UNIT/ML) ONE ×5 (06:20→08:24)
[2018-11-01] MEDS ORDERED: ADENOSINE 6 MG/2 ML VIAL ONE (06:20)
[2018-11-01] MEDS ORDERED: ceFAZolin 1 GM VIAL ONE ×3 (06:20→09:45)
[2018-11-01] MEDS ORDERED: NA BICARBONATE 50 MEQ/50 ML VIAL ONE (06:20)
[2018-11-01] MEDS ORDERED: AMIODARONE HCL 150 MG/3 ML VIAL ONE ×2 (06:20→06:22)
[2018-11-01] MEDS ORDERED: ALBUMIN 5% 250 ML BOTTLE IV ONE (06:21)
[2018-11-01] MEDS ORDERED: NITROGLYCERIN/D5W 50 MG/250 ML BOTTLE IV ONE (06:21)
[2018-11-01] MEDS ORDERED: SODIUM BICARBONATE 50 MEQ/50 ML SYR ONE (06:21)
[2018-11-01] MEDS ORDERED: LIDOCAINE 2% 100 MG/5 ML SYR ONE (06:21)
[2018-11-01] MEDS ORDERED: methylPREDNISolone SOD SUCC 1 GM/8 ML VIAL ONE (06:22)
[2018-11-01] MEDS ORDERED: MAGNESIUM SULFATE 1 GM/2 ML VIAL ONE (06:22)
[2018-11-01] MEDS ORDERED: CITRATE DEXTROSE SOLN 500 ML BAG ONE (06:22)
[2018-11-01] MEDS ORDERED: MIDAZOLAM 2 MG/2 ML VIAL IVP ONE (06:41)
[2018-11-01] MEDS ORDERED: PROPOFOL 200 MG/20 ML VIAL ONE (06:43)
[2018-11-01] MEDS ORDERED: fentaNYL 250 MCG/5 ML INJ ONE ×2 (06:43→08:24)
[2018-11-01] MEDS ORDERED: MINERAL OIL 10 ML VIAL ONE (06:53)
[2018-11-01] MEDS ORDERED: PAPAVERINE HCL 60 MG/2 ML SDV ONE (06:53)
[2018-11-01] MEDS ORDERED: VERAPAMIL 5 MG/2 ML VIAL ONE (06:53)
--- NOTE | 2018-11-01 07:12 | PDHPUP ---
History & Physical Update H&P update statement: This history and physical update is based on an assessment of the patient which was completed after admission or registration (within 24 hours), but prior to the surgery/procedure. H&P update: H&P reviewed & patient examined (No resting CP, dyspnea, wt gain, edema, palpitations ), changes noted (Carotid US neg for hemodynamically sig stenosis, HgbA1c 11.4%)
[2018-11-01] MEDS ORDERED: ROCURONIUM 100 MG/10 ML VIAL ONE ×2 (08:24)
[2018-11-01] MEDS ORDERED: LIDOCAINE 2% 2 ML INJ ONE (08:25)
[2018-11-01] MEDS ORDERED: METOPROLOL TARTRATE 5 MG/5 ML INJ ONE (08:25)
[2018-11-01] MEDS ORDERED: PHENYLEPHRINE HCL 100 MCG/ML SYR ONE ×2 (08:25→10:33)
[2018-11-01] MEDS ORDERED: MIDAZOLAM 2 MG/2 ML VIAL ONE (09:41)
[2018-11-01] MEDS ORDERED: ONDANSETRON 4 MG/2 ML VIAL ONE (10:51)
[2018-11-01] MEDS ORDERED: SUGAMMADEX SODIUM 200 MG/2 ML VIAL IVP ONE (10:53)
[2018-11-01] MEDS ORDERED: fentaNYL 100 MCG/2 ML INJ IVP PRN (11:11)
[2018-11-01] MEDS ORDERED: PROMETHAZINE HCL 25 MG/ML INJ IVP PRN (11:11)
[2018-11-01] MEDS ORDERED: NALOXONE HCL 0.4 MG/ML INJ IVP PRN (11:11)
[2018-11-01] MEDS ORDERED: epHEDrine SULFATE 10 MG/ML SYR IVP PRN (11:11)
[2018-11-01] MEDS ORDERED: PHENYLEPHRINE HCL 100 MCG/ML SYR IVP PRN (11:11)
[2018-11-01] MEDS ORDERED: DIAZEPAM 5 MG/ML 1 ML SYR IVP PRN (11:11)
[2018-11-01] MEDS ORDERED: HYDROmorphONE/DILAUDID 1 MG/ML INJ IVP PRN (11:11)
--- NOTE | 2018-11-01 11:11 | POSTANESTH ---
Post Anesthetic Evaluation Cardiovascular Status: Normal, Stable Respiratory Status: Normal, Stable, Requires Airway Assist Level of Consciousness/Mental Status: Unconscious Pain Control: Adequate, Prn Tx Ordered Nausea/Vomiting Control: Adequate, Prn Tx Ordered Complications Possibly Related to Anesthesia: None Noted
[2018-11-01] MEDS ORDERED: LACTULOSE 20 GM/30 ML UDCUP PO PRN (11:20)
[2018-11-01] MEDS ORDERED: ONDANSETRON DISINTEGRATING 4 MG TAB PO PRN (11:20)
[2018-11-01] MEDS ORDERED: POLYETHYLENE GLYCOL 3350 17 GM PKT PO PRN (11:20)
[2018-11-01] MEDS ORDERED: MEPERIDINE 25 MG/0.5 ML AMP IVP PRN (11:20)
[2018-11-01] MEDS ORDERED: POTASSIUM Cl (KCl) 50 ML IV PRN (11:20)
[2018-11-01] MEDS ORDERED: PANTOPRAZOLE SODIUM 40 MG VIAL IVP ONE (11:20)
[2018-11-01] MEDS ORDERED: ONDANSETRON 4 MG/2 ML VIAL IVP PRN (11:20)
[2018-11-01] MEDS ORDERED: BISACODYL 10 MG SUPP PR PRN (11:20)
[2018-11-01] MEDS ORDERED: SODIUM CL NASAL 45 ML BTL EACHNARE PRN (11:20)
[2018-11-01] MEDS ORDERED: MAGNESIUM HYDROXIDE 30 ML UDCUP PO PRN (11:20)
[2018-11-01] MEDS ORDERED: CEPACOL LOZENGE PO PRN (11:20)
[2018-11-01] MEDS ORDERED: D50W 25 GM/50 ML SYR IVP PRN (11:20)
[2018-11-01] MEDS ORDERED: METOCLOPRAMIDE 10 MG/2 ML VIAL IVP PRN (11:20)
[2018-11-01] MEDS ORDERED: ACETAMINOPHEN 650 MG SUPP PR PRN (11:20)
[2018-11-01] MEDS ORDERED: INSULIN REGULAR HUMAN 100 UNIT in NS 100 ML IV SCH (11:30)
[2018-11-01] MEDS ORDERED: NS 1,000 ML IV SCH (11:30)
--- NOTE | 2018-11-01 12:00 | PDMN ---
Medical Necessity Medical necessity: MCG S390 CABG - 4 days [facility] INPT only OP: CABG X4,
[2018-11-01] MEDS: fentaNYL 100 MCG/2 ML INJ IVP PRN ×4 (12:10→21:35)
--- NOTE | 2018-11-01 12:27 | GOP ---
DATE OF OPERATION: 11/01/2018 SURGEON: Edward Hernandez DO DIRECTOR OF PRODUCT DEVELOPMENT: Quintin. ANESTHESIOLOGIST: Dr. Delgado. PREOPERATIVE DIAGNOSIS: Severe 3-vessel coronary disease with ischemic cardiomyopathy. POSTOPERATIVE DIAGNOSIS: 1. Severe 3-vessel coronary disease with ischemic cardiomyopathy with evidence of mild mitral insuff iciency. 2. Severe chronic obstructive pulmonary disease. 3. Uncontrolled diabetes. PROCEDURE PERFORMED: 1. Coronary artery bypass grafting x4 with left internal mammary artery to the left anterior descend ing, saphenous vein graft to the diagonal, saphenous vein graft to the 1st obtuse marginal, and saphe nous vein graft to the marginal branch of the right. 2. Ligation of left atrial appendage. 3. Endoscopic vein harvest. FINDINGS: DESCRIPTION OF PROCEDURE: The patient was consented for surgery, brought to the operating room, intu bated. Monitoring lines were placed. He was prepped and draped in sterile classical manner. Sterno patricio was performed. Mammary was harvested. It was a good quality vessel measuring 2 mm in diameter. He was heparinized and cannulated in the ascending aorta. He had evidence of a previous right vent ricular infarction as well as inferior wall. Overall ejection fraction was calculated at 45% to 50% on GIACOMO. He had mild mitral insufficiency on GIACOMO as well. Cardiopulmonary bypass was begun. Cardiop legic arrest was obtained using Del Nid protocol. We then doubly ligated the left atrial appendage which was narrow at the base with 0 Tycron sutures. We then grafted the 1st OM, which was a 1.6 mm v essel distal to the stent with proximal anastomosis completed. We then grafted the marginal branch o n the right. The distal right after the marginal was heavily calcified and had no significant lumen and tapered down to a nonessential vessel at the PDA. For that reason, a large marginal, which measu red 1.82 mm, was grafted with vein graft and anastomosed to the ascending aorta. We then placed a ve in graft to the 1st diagonal, which was a 2.2 mm good quality vessel with a proximal anastomosis comp leted as well with the cross-clamp on and then grafted the mammary to the mid LAD, which was a large 2.5-2.6 mm good quality vessel distal to the stents. It was tacked to the epicardium. The cross-cla mp was removed with suction on the ascending aortic vent. Spontaneous cardiac activity was noted to resume. The patient was rewarmed and weaned from bypass. The heparin was reversed with protamine. The cannula was removed and oversewn. Two ventricular pacing wires, 1 left pleural, [address] ain were placed. The thymic fat and pericardium were closed. Chest was closed in standard fashion. Patient was returned to ICU in stable condition. It should be noted that his lungs had evidence of significant COPD with bullae and chronic changes with apparent air trapping during surgery. /[id number]/MODL
[2018-11-01] MEDS: DEXMEDETOMIDINE HCL 400 MCG in NS 100 ML IV SCH (13:18)
[2018-11-01] MEDS: ALBUMIN 5% 250 ML IV PRN ×2 (13:42→21:14)
[2018-11-01] MEDS ORDERED: LIDOCAINE 1% 300 MG/30 ML SDV MISC ONE (14:16)
[2018-11-01] MEDS: ceFAZolin 2 GM/DEXTROSE 100 ML IV SCH ×2 (14:47→21:06)
--- NOTE | 2018-11-01 15:20 | ASMTCASEMG ---
Living Arrangements What is your living Answers: With Child(buddy) arrangement? Who do you live with? Type Of Residence What kind of residence do Answers: House you live in? Discharge Plan Comments Coordination Status Comments Notes: Patient is a 53yo single male who was admitted for a coronary artery bypass grafting x4. OT/PT/cardiac rehab evals have been ordered for the patient. Likely patient will go for outpatient cardiac rehab. D/C plan TBD. CM will follow. Date Signed: 11/01/2018 03:19 PM Electronically Signed By:Analilia Gorman LCSW
[2018-11-01] MEDS: ACETAMINOPHEN 325 MG TAB PO SCH (18:16)
[2018-11-01] MEDS: oxyCODONE IR 5 MG TAB PO PRN ×2 (18:16→22:06)
[2018-11-01] MEDS ORDERED: MUPIROCIN 2% 22 GM OINT NS SCH (21:00)
[2018-11-02] MEDS: ACETAMINOPHEN 325 MG TAB PO SCH ×2 (00:30→05:48)
[2018-11-02] MEDS: DEXMEDETOMIDINE HCL 400 MCG in NS 100 ML IV SCH (02:14)
[2018-11-02] MEDS: oxyCODONE IR 5 MG TAB PO PRN (04:22)
[2018-11-02 05:26] LABS: PLATELET COUNT 93 10^3/uL (150-400)
--- NOTE | 2018-11-02 05:27 | GCON ---
DATE OF CONSULTATION: 11/01/2018 REASON FOR CONSULTATION: Postoperative respiratory insufficiency following open-heart surgery, COPD. HISTORY: The patient is a 53-year-old gentleman with severe multivessel coronary artery disease and angina. He has a history of ongoing tobacco abuse and COPD, systemic hypertension, hyperlipidemia, a nd peripheral vascular disease. He underwent coronary artery bypass grafting x4 with internal mammar y and saphenous vein grafts and ligation of the left atrial appendage. He was kept intubated postope ratively and transferred to the intensive care unit on the ventilator. Intraoperatively, he had poor lung expansion which improved after deep suction of his airways. This was felt to be consistent wit h mucus plugging. Bronchoscopy is requested prior to extubation. PAST MEDICAL HISTORY: Remarkable for issues as outlined above. He continues to smoke cigarettes, jessie awan has COPD, has hypertension, hyperlipidemia, type 2 diabetes, and peripheral vascular disease. Luisito kay has had angioplasty previously. MEDICATIONS ON ADMISSION: Included metformin which has recently been held, p.r.n. nitroglycerin, los job, hydrochlorothiazide, carvedilol, Lipitor, and aspirin. DRUG ALLERGIES: No known drug allergies. SOCIAL HISTORY: Apparently single, smoker. Alcohol unknown. FAMILY HISTORY: Unobtainable. REVIEW OF SYSTEMS: Unobtainable. PHYSICAL EXAMINATION: GENERAL: Reveals a somewhat stocky, overweight gentleman who is on the ventil ator postoperatively, sedated with Precedex. He appears comfortable. VITAL SIGNS: Blood pressure i s 125/55, heart rate 100 with sinus rhythm on the monitor. He is on 40% FiO2 with saturations in the high 90s. Respiratory rate is set at 10. He is over breathing. He is afebrile. CVP is 8. He is on dopamine at 5. HEENT: Remarkable for the oral endotracheal tube. Pupils appear equal. NECK: L arge. CHEST: Clear anteriorly with coarse breath sounds bilaterally. Breath sounds are diminished at the bases. There are a few rales present at the bases. There are no obvious rhonchi. HEART: Re gular in rate and rhythm. Heart tones are distant. There are no obvious gallops. ABDOMEN: Protube rant and soft. There is no obvious tenderness. Bowel sounds are diminished. EXTREMITIES: The left lower extremity is wrapped following vein harvest. There is trace plus edema. NEUROLOGIC: Examina tion is nonfocal. Mentation is likely intact, however, is difficult to evaluate currently. DATABASE: Chest x-ray postoperatively shows good aeration of the lungs bilaterally, small lung volum es, lines and tubes to be in good position and some vague increased lung markings. Mediastinal tube and a left chest tube are in place. LABORATORY: Hematocrit postoperatively is 37. Arterial blood gas postoperatively showed a pH of 7.3 4, pCO2 of 40, and a pO2 of 238. Chemistries are within normal limits with a glucose of approximatel y 160. ASSESSMENT: 1. Status post open heart surgery with coronary artery bypass grafting x5. He is doing well postope ratively. He is hemodynamically stable. 2. Postoperative respiratory insufficiency. He is doing well. He has been weaned to 40% FiO2. Bro nchoscopy will be needed prior to extubation. He has not yet been trialed on CPAP. 3. Tobacco abuse. He was smoking up to the time of surgery. He likely does have a component of at least mild chronic obstructive pulmonary disease. There is no evidence of severe disease and no evid ence of exacerbation. He is apparently not on inhalers at home. He would not appear to need routine nebulized therapies at this time. P.r.n. Xopenex will be prescribed. 4. Secretions, mucus plugging. Present intraoperatively. Bronchoscopy is indicated prior to extuba tion. This has been done and dictated elsewhere. Some moderate central secretions were present. Th christiana were removed with suction and lavage. Cultures were sent. No significant distal mucous plugging or abnormalities were found. PLAN AND RECOMMENDATIONS: Patient will be kept on the ventilator following bronchoscopy until he jimena kens. A CPAP trial will be done when he awakens and if he meets acceptable parameters, he will be ex tubated. Xopenex will be added to his regimen on a p.r.n. basis. Chest x-ray will be followed. Bronchopulmonary therapies will need to be maintained. Chest x-ray can be repeated in the a.m. Kiarra adams will be followed. Further plans and recommendations will be made based on his progress over the next 12-24 hours. /[id number]/MODL
[2018-11-02] MEDS: ceFAZolin 2 GM/DEXTROSE 100 ML IV SCH (05:48)
[2018-11-02] MEDS ORDERED: HEPARIN 5,000 UNIT/0.5 ML INJ SC SCH (06:00)
[2018-11-02] MEDS ORDERED: ALBUMIN 5% 500 ML BOTTLE IV ONE ×2 (06:22→06:59)
[2018-11-02] MEDS ORDERED: NALOXONE HCL 0.4 MG/ML INJ ONE (06:37)
--- NOTE | 2018-11-02 06:48 | GPN ---
PROCEDURE: Therapeutic bronchoscopy. INDICATION: Mucus plugging with atelectasis intraoperatively. This procedure is being done prior to anticipated extubation post CABG. PROCEDURE NOTE: The procedure was performed in the intensive care unit in the patient's room. Appro priate time-out was performed. No conscious sedation was required. The patient was being sedated wi th Precedex. The fiberoptic bronchoscope was passed via an adapter on the end of the patient's endotracheal tube a nd into the distal trachea and from there into the lower tracheobronchial tree bilaterally. There we re moderate central secretions which were removed with suction and lavage. Some distal secretions we re present in dependent areas. These were also removed. The mucosa was generally erythematous. The re were no endobronchial lesions. Anatomy was normal. A bronch wash culture was obtained. There were no complications. Vital signs and oxygen saturations remained stable throughout the proce dure. /[id number]/MODL
[2018-11-02] MEDS ORDERED: IOPAMIDOL (ISOVUE 370) 100 ML BTL IV ONE (07:23)
--- NOTE | 2018-11-02 07:29 | PDGENHP ---
History and Physical History and Physical: HOSPITALIST CONSULT AND CRITICAL CARE NOTE GREATER THAN 50 MIN BEDSIDE CARE PROVIDED BY ME TODAY CC: I am asked by the cardiovascular surgery service to evaluate and assist in the care of this patient after open heart surgery, specifically related to management of diabetes and other medical issues HISTORY: This patient with diabetes COPD hypertension, carotid disease and PVD , underwent multivessel bypass surgery on 11/01. On this date the hospitalist team was asked assess patient for management of diabetes which has been in good range here so far an insulin drip. However this morning as I read I have the patient has had change in status with decrease in all alertness and responsiveness and left-sided neglect. A stroke alert was called and he has been down to the imaging department for a CT head which showed no evidence of hemorrhage, ischemic change, mass or otherwise. CT angios have been done showing suspected acute occlusion of the right M2 branch of middle cerebral artery. 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 Other than his acute change in neurologic function, the patient has had a stable night from a cardiovascular, pulmonary, and renal standpoint. Vital signs have been good and no arrhythmia ROS: A comprehensive 10 system review revealed no other significant findings PAST MEDICAL HISTORY: Coronary disease Hypertension Hyperlipidemia Type 2 diabetes COPD Peripheral vascular disease Ongoing tobacco use FAMILY MEDICAL HISTORY: Unknown to me at this point SOCIAL HISTORY: Single Ongoing tobacco use at home MEDICATIONS: The patients list has been reconciled by our clinical pharmacist in the EMR. The major medicine he has used at home for diabetes is metformin No medication allergies PHYSICAL EXAMINATION: Vital Signs: Overall normal without fever Therapeutic Support Staff: Sinus rhythm Oxygen saturations good Notably the trait patient is currently on an insulin drip, and currently receiving IV dopamine. Examination: Genera/Neurologic: The patient is awake but lethargic, responds to questions and commands with some delay and times needs to have simple questions or commands repeated for his understanding. He has clear-cut left-sided facial and left upper extremity paresis, though the left lower extremity seems much better. Right side is all good. Speech is slightly slurred. No tremors. Skin: warm, dry, good color, no rash HEENT: There is a significant bruise on the left side of his tongue without obvious laceration, otherwise normal Neck: no mass or jvd Resps: relaxed Lungs: clear breath sounds Heart: regular, no murmur Abdomen: soft, nondistended, nontender, +BS, no mass Upper Extremities: normal Lower Extremities: Trace by pedal edema, vein graft wounds look good, warm No Bleeding or bruising IV site: looks normal LABORATORY DATA: Hemoglobin decreased from preop 12 to 9.6 Sugars stable in the 110-140 range be on insulin drip RADIOLOGY STUDIES: I reviewed the images from CT angio of head and neck as well as the noncontrast CT head. There is no bleeding or ischemic abnormality. There is diffuse cerebrovascular disease of significance. The right M2 branch is read as suspicious for acute occlusion of the radiologist and on my review of the images that vessel does abruptly terminate proximally. ASSESSMENT: * Acute stroke -left-sided symptoms (facial and upper extremity paresis, neglect) with some slurred speech, with suspected acute right M2 branch occlusion by CTA -patient will be transferred to [facility] for acute vascular interventional management of his stroke, transported is arranged emergently * Status post multivessel CABG; overall stable from a cardiac standpoint * Diabetes mellitus type 2 -would continue insulin drip at this time, with great care to avoid hypoglycemia, okay to allow some degree of hyperglycemia to avoid hypoglycemia if necessary * Hypertension -follow blood pressures closely, at this point allow permissive hypertension per stroke protocols * Peripheral vascular disease appears stable * COPD stable I have reviewed the patient's case in detail with Lore Cordova and Dr. Hernandez of CVSurg, as well as Dr. Bright of radiology
--- NOTE | 2018-11-02 07:49 | SOAPPROG ---
SOAP Progress Note Assessment/Plan: Assessment: POD#1 CABG x 4 (ARREDONDO-LAD, SV-D1, SV-OM1, SV-AM), EVH LLE, prophylactic suture ligation left atrial appendage Sx severe CAD/remote IMI - Revascularized w CABG. Secondary prevention w BB, ASA and statin when appropriate. Ischemic cardiomyopathy - Old IMI with intraop LVEF ~50%. Separation from CPB on low dose dopa. Stable hemodynamics overnight without dysrhythmias. Wean deferred pending neurologic stability. Acute postoperative stroke - Hx sig PVD/CVD s/p bilat CEAs. Acute change in neuro status at 0645 this am, manifest by decreased alertness, dysarthria, left facial droop, and left limb neglect. Stroke alert called. Head/neck CTA done, results pending. Tx to stroke center planned. MR - mild, functional s/p old IMI. Surveillance per cards. Acute expected blood loss anemia w thrombocytopenia - Stable. No transfusions needed. No evidence active bleeding. VTE prophylaxis w SCDs for now. Longstanding tobacco abuse/suspected COPD - Prior attempts to quit smoking unsuccessful. Atelectasis of left lung with suctionable secretions noted intraop. Kept intubated with precautionary bronchoscopy/BAL prior to extubation. Moderate secretions removed. Specimen sent. Subsequent extubation without incident. Min supplemental O2 needs. Xopenex prn. DM2, uncontrolled - by preop A1c of 11.4%. Postop hyperglycemia managed with insulin gtt. Plan: Tx to [facility] for stroke care. CV surgery recovery as per [facility]. 11/02/18 07:47 Subjective: Sleepy but arousable. Oriented to person, place, time. Opening eyes, following simple commands, moving right limbs. Able to communicate in intelligible sentences. Objective: Vital Signs Temp Pulse Resp BP Pulse Ox 37.3 C 86 12 108/44 L 99 11/02/18 04:00 11/02/18 06:00 11/02/18 06:00 11/02/18 06:00 11/02/18 06:00 Microbiology 11/01/18 16:00 - Final Sputum, Induced/Suctioned Laboratory Results 11/02/18 05:15 11/02/18 05:15 11/01/18 11/02/18 11/03/18 05:59 05:59 05:59 Intake Total 2470 Output Total 1915 Balance 555 Dopa @ 5 mcg for MAP > 70. Holding SR/ST. Excellent sats on 2 lpm O2. Adequate fluid balance. CTOP thinning. CXR-> hypovent, no sig pulm vasc congestion, high riding left pleural tube. Labs as expected. Physical Exam - Physical Exam General Appearance: no apparent distress Respiratory: lungs clear (grossly), other (blakes x 2 y-d to pleurovac, serosang drainage, no air leak) Cardiac/Chest: regular rate, rhythm, tachycardia, other (Sternotomy CDI. Vwires intact.) Abdomen: normal bowel sounds, non-tender, soft Skin: warm/dry, other (LLE wrap intact) ICD10 Worksheet Patient Problems: Problems Problem Status Onset Acute blood loss anemia Acute S/P CABG x 4 Acute ~11/01/18 Type 2 diabetes mellitus not at goal Acute Tobacco abuse Chronic CAD (coronary artery disease) Chronic PVD (peripheral vascular disease) with claudication Chronic
[2018-11-02] MEDS ORDERED: ASPIRIN 81 MG CHEWABLE TAB PO SCH (09:00)
[2018-11-02] MEDS ORDERED: PANTOPRAZOLE SODIUM 40 MG TAB PO SCH (09:00)
--- NOTE | 2018-11-02 09:31 | ASMTLACE ---
LACE Length of stay for Answers: 1 day current admission Acuity / Level of Answers: Yes Care: Did the patient have an inpatient admission? Comorbidities - select Answers: Coronary Artery Disease all that apply Diabetes (uncontrolled or controlled) # of Emergency department Answers: 0 visits in the last 6 months Score: 7 Date Signed: 11/02/2018 09:31 AM Electronically Signed By:Joanne Cloud RN
--- NOTE | 2018-11-02 09:35 | ASMTDCNOTE ---
Case Management Discharge Discharge Order Complete? Answers: Yes Patient to Obtain Answers: Other Notes: [facility] Medications Transportation Arranged Answers: Other Notes: [facility] will Pick (Date 11/02/2018 09:30 AM & Time) EMTALA Complete Answers: Yes Family Notified Answers: Yes Discharge Comments Notes: Patient EMTALA tx to [facility]. to completed by Dr Hernandez. [employer] helicopter transport arranged by [facility]. Patient's daughter Cindy and brother Cyrus will meet patient at [facility] Date Signed: 11/02/2018 09:35 AM Electronically Signed By:Joanne Cloud RN
[2018-11-02 10:17] VITALS: BP 131/60
--- NOTE | 2018-11-02 11:27 | PDINTPN ---
[employer] Specialist Progress Note Assessment/Plan: Assessment: Acute stroke. Neurologic changes noted approximately 0700. CTA showed right middle cerebral artery clot in the M2. Being transferred to [place] for possible thrombectomy. Neurologic status may already be improving somewhat. He will move his left lower extremity on command for me. Status post coronary artery bypass grafting. Hemodynamically stable. Doing well. Tobacco abuse/COPD. Stable since extubation. On 2 L without any evidence of respiratory compromise. Bronch wash culture prior to extubation still pending. Type 2 diabetes: Glucoses stable on insulin. Metabolic: No issues identified. Sodium 133, follow. Anticoagulation: On prophylactic subcu heparin. Anemia: Hematocrit drifting down postoperatively as expected. No significant active bleeding. Plan: Transfer to [place] for possible thrombectomy. Continue postop care otherwise, bronchopulmonary therapies, oxygen. 25 min of critical care time spent directly with the patient. Discussed with nursing, cardiovascular surgery. Subjective: Status post stroke early this morning. Arousable, responsive. Being transferred to [place] for possible thrombectomy Objective: Vital Signs Temp Pulse Resp BP Pulse Ox 36.5 C 95 16 131/60 H 100 11/02/18 07:00 11/02/18 10:00 11/02/18 10:00 11/02/18 10:00 11/02/18 10:00 Microbiology 11/01/18 16:00 - Final Sputum, Induced/Suctioned Laboratory Results 11/02/18 05:15 11/02/18 05:15 11/01/18 11/02/18 11/03/18 05:59 05:59 05:59 Intake Total 2470 500 Output Total 1915 335 Balance 555 165 CXR: Mild bibasilar atelectasis with some hypoventilatory changes. Lines and tubes in good position. CTA of brain: Right middle cerebral artery occlusion, likely acute. M2. Physical Exam - Physical Exam General Appearance: no apparent distress, obese, other (Does respond appropriately to simple questions and commands), No unresponsive EENT: PERRL/EOMI, other (Nasal cannula in place at 2 L) Neck: normal inspection (No obvious JVD. Status post previous carotid endarterectomies bilaterally.) Respiratory: lungs clear (Anteriorly), decreased breath sounds (At bases), rales (Some bibasilar rales posterior laterally), No rhonchi, No wheezing Cardiac/Chest: regular rate, rhythm, other (Chest/mediastinal tubes to suction. No air leak. Serosanguineous drainage.), No gallop Abdomen: non-tender, soft, distended Male Genitalia: other (Ang catheter in place, good urine output.) Skin: normal color, warm/dry Extremities: pedal edema (Trace +) Neuro/Psych: cognition abnormalities (Somnolent, arouses, responds), No no motor /sensory deficits (Left-sided deficits, upper extremity greater than lower extremity) ICD10 Worksheet Patient Problems: Problems Problem Status Onset Tobacco abuse Chronic Acute blood loss anemia Acute S/P CABG x 4 Acute ~11/01/18 Type 2 diabetes mellitus not at goal Acute CAD (coronary artery disease) Chronic PVD (peripheral vascular disease) with claudication Chronic
[2018-11-03] MEDS ORDERED: SENNOSIDES/DOCUSATE SODIUM TAB PO SCH (09:00)
--- NOTE | 2018-11-03 14:32 | CPEKG ---
Test Reason : OPEN Blood Pressure : / mmHG Vent. Rate : 089 BPM Atrial Rate : 089 BPM P-R Int : 152 ms QRS Dur : 080 ms QT Int : 370 ms P-R-T Axes : 029 067 071 degrees QTc Int : 451 ms Sinus rhythm Confirmed by Ziggy Browne ([id number]) on 11/03/2018 2:31:50 PM Referred By: Confirmed By:Ziggy Browne
[2018-11-04] MEDS ORDERED: NITROGLYCERIN 0.4 MG BTL SL PRN (09:00)
[2018-11-04] MEDS ORDERED: MULTIVITAMINS 1 EACH TAB PO SCH (09:00)
--- NOTE | 2018-11-05 13:51 | PDDCSUM ---
Discharge Summary Discharge Summary: DATE OF ADMISSION: 11/01/18 DATE OF DISCHARGE: 11/02/18 DISPOSITION: Transferred to [facility] PRINCIPAL DISCHARGE DIAGNOSES: 1. Acute postoperative stroke with right middle cerebral artery branch vessel thrombus 2. Severe multivessel coronary artery disease treated with coronary artery bypass grafting FOLLOW UP APPOINTMENTS: 1. CV surgery: with Dr Hernandez at [facility] within 2 weeks of release from hospital. 2. Cardiology: with Dr Ruggiero at [facility] within 4 weeks of release from hospital. Appointment to be established during surgical visit. ALLERGIES/SENSITIVITIES: NKDA DISCHARGE MEDICATIONS: see medical administration record for full details CONSULTANTS: Pulmonology/critical care (Frankie), Hospitalist (Raad) PROCEDURES/IMAGIN/11 (David): Coronary artery bypass grafting x 4 (ARREDONDO-LAD, SV-D1, SV-OM1, SV- AM), takedown left internal mammary artery, endoscopic vein harvest left leg. Prophylactic suture ligation of the left atrial appendage. 11/[address]: Cerebrovascular atherosclerosis. No acute hemorrhage, hydrocephalus, mass effect or definitive acute infarct. 11/02 Head/neck CTA: Acute occlusion of a right M2 branch of the middle cerebral artery. Chronic occlusion of the left MCA with numerous collaterals. No sig prox carotid stenosis, moderate atherosclerotic irregs of distal ICAs bilaterally. Severe distal vertebral artery stenoses bilaterally. Severe stenosis of the prox left subclavian artery. HISTORY OF PRESENT ILLNESS: 53 yo male with significant vascular disease and recurrent exertional angina attributed to stent failure of mid LAD, JOSIANE and RCA, admitted for elective CABG. PERTINENT PAST MEDICAL HISTORY: CAD, remote IMI, dyslipidemia, HTN, type 2 diabetes mellitus, PVD with claudication, cerebrovascular disease s/p bilateral CEAs, tobacco abuse ABBREVIATED HOSPITAL COURSE BY ACTIVE PROBLEM LIST: 1. Sx severe CAD - Revascularized w CABG. Secondary prevention w BB, ASA and statin when appropriate. 2. Ischemic cardiomyopathy - Intraop LVEF ~50%. Separation from CPB on low dose dopa. Hemodynamic stability maintained without dysrhythmias. Wean deferred after neurologic injury. 3. Acute postoperative stroke - Acute change in neuro status at 0645 on POD#1. Stroke alert called for decreased alertness assoc with dysarthria, left facial droop, and left limb neglect. Head imaging concerning for M2 thrombus of RMCA. Tx to stroke center arranged for possible thrombectomy. 4. MR - Mild, functional s/p old IMI. Surveillance per cards. 5. Acute expected blood loss anemia w thrombocytopenia - Stable. No transfusions needed. No evidence active bleeding. VTE prophylaxis w SCDs. 6. Longstanding tobacco abuse/suspected COPD - Prior attempts to quit smoking unsuccessful. Atelectasis of left lung with suctionable secretions noted intraop. Kept intubated with precautionary bronchoscopy/BAL prior to extubation. Moderate secretions removed. Specimen sent. Subsequent extubation without incident. Min supplemental O2 needs. Xopenex prn. 7. DM2, uncontrolled - by preop A1c of 11.4%. Postop hyperglycemia managed with insulin gtt.
[2018-11-06] MEDS ORDERED: ERGOCALCIFEROL 50,000 I.UNIT CAP PO SCH ×2 (09:00→11:21)
[2018-11-11] MEDS ORDERED: ATORVASTATIN CALCIUM 20 MG TAB PO SCH (09:00)
== END 2018-11-02 10:05 | disposition short-term general hospital (02) | DRG 235 ==
LOC: F3N 05:31 → F2N 08:41
PROVIDERS: ADMIT Thoracic Surgery (Cardiothoracic Vascular Surgery); ATTEND Thoracic Surgery (Cardiothoracic Vascular Surgery)
PROC: 021209W Bypass Coronary Artery, Three Arteries from Aorta with Autologous Venous Tissue, Open Approach (ICD-10-PCS; principal; 2018-11-01)
PROC: 02L70ZK Occlusion of Left Atrial Appendage, Open Approach (ICD-10-PCS; principal; 2018-11-01)
PROC: 02100Z9 Bypass Coronary Artery, One Artery from Left Internal Mammary, Open Approach (ICD-10-PCS; principal; 2018-11-01)
PROC: 5A1223Z Performance of Cardiac Pacing, Continuous (ICD-10-PCS; principal; 2018-11-01)
PROC: 06BY4ZZ Excision of Lower Vein, Percutaneous Endoscopic Approach (ICD-10-PCS; principal; 2018-11-01)
PROC: 0BC38ZZ Extirpation of Matter from Right Main Bronchus, Via Natural or Artificial Opening Endoscopic (ICD-10-PCS; 2018-11-01 07:15)
PROC: 0BC78ZZ Extirpation of Matter from Left Main Bronchus, Via Natural or Artificial Opening Endoscopic (ICD-10-PCS; 2018-11-01 07:15)
DX: I25.118 Atherosclerotic heart disease of native coronary artery with other forms of angina pectoris (principal); I63.311 Cerebral infarction due to thrombosis of right middle cerebral artery; D62 Acute posthemorrhagic anemia; J98.11 Atelectasis; G81.94 Hemiplegia, unspecified affecting left nondominant side; R29.810 Facial weakness; R29.717 NIHSS score 17; I25.5 Ischemic cardiomyopathy; E11.51 Type 2 diabetes mellitus with diabetic peripheral angiopathy without gangrene; E11.65 Type 2 diabetes mellitus with hyperglycemia; J44.9 Chronic obstructive pulmonary disease, unspecified; E78.5 Hyperlipidemia, unspecified; I10 Essential (primary) hypertension; I25.2 Old myocardial infarction; Z72.0 Tobacco use; Z79.84 Long term (current) use of oral hypoglycemic drugs; R06.89 Other abnormalities of breathing
CPT/HCPCS: 82435-PO; 82565-PO; 82947-PO; 83605-ER; 84132-PO; 84295-PO; 84520-PO; 85014-ER; J0153; J0282; J0690; J1265; J1644; J1815; J2001; J2150; J2250; J2260; J2270; J2310; J2370; J2405; J2440; J2704; J2720; J2930; J3010; J3475; J3480; P9041; Q9967